=== PATIENT | female | born 1965 | race American Indian/Alaskan Native ===

== ENCOUNTER 2017-12-24 15:47 | Emergency (ER) | payer OTHER ==
[2017-12-24 15:57] VITALS: BP 138/76
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
== END 2017-12-24 17:08 | disposition home or self-care (01) ==
LOC: ED 15:47
DX: M79.1 Myalgia (principal); R51 Headache; R42 Dizziness and giddiness; I10 Essential (primary) hypertension
CPT/HCPCS: 99282